=== PATIENT | female | born 1940 | race Caucasian/White ===

== ENCOUNTER 2016-07-21 17:35 | Inpatient (IN) | payer MEDICARE, MEDICAID ==
[~2016-07-21] VITALS: Ht 152.4 cm; Wt 60.2 kg
--- NOTE | ~2016-07-21 | CON ---
PATIENT'S NAME: KEITH KONG [facility] AGE: 75 Y [address] ROOM: [place] [address] LOCATION: [facility] [place] ADMIT DATE: 07/21/2016 Consultation DISCHARGE DATE: FAMILY PHYSICIAN: Lyric Blair MD ATTENDING PHYSICIAN: DAVID ROMERO DATE OF CONSULTATION: 07/22/2016 REASON FOR CONSULTATION: Dysphagia. HISTORY OF PRESENT ILLNESS: This is a very pleasant 75-year-old female who is well-known to our Gastroenterology Services. The patient does have a history of a diffuse esophageal spasms with recent PEG tube placement for nutritional support. The patient was admitted with complaints of intractable nausea, vomiting, as well as abdominal pain. We were asked to see in consultation as the patient needs esophageal clearance for possible MICHELLE. Cardiology was suspecting ruling out any type of infectious process going on regarding the patient's heart as MICHELLE were possibly ordered where they are requesting esophageal clearance. The patient was seen and examined. She does state that she has lost approximately 50 pounds over the past few months. The patient does appear to be visibly dry. She denies any fever or chills. The patient does have some abdominal pain. She states she has not been eating anything orally or denies any coughing with drinking of liquids. She does utilize her tube feedings for feedings as prescribed without any complications. PAST MEDICAL HISTORY: Diffuse esophageal spasm, dysmotility, rheumatoid arthritis on chronic steroids, hypertension, chronic recurring C. diff infection, and diverticulitis. PAST SURGICAL HISTORY: PEG tube placement and colostomy reversal. PAST SOCIAL HISTORY: The patient is . She does have a 36-fnyo-cvks history of smoking. She denies any alcohol or illicit drug use. FAMILY HISTORY: The patient's father secondary to a plane crash. The patient's mother of congestive heart failure. She has 2 brothers with heart disease. ALLERGIES: NSAIDS, GOLD SALTS, PENICILLIN, TETRACYCLINES, SULFA, ETHYL ALCOHOL, MORPHINE, ASPIRIN, INDOMETHACIN, ERYTHROMYCIN BASE, CHLOROQUINE, AZATHIOPRINE, PATIENT'S NAME: KEITH KONG [facility] AGE: 75 Y [address] ROOM: [place] [address] LOCATION: [facility] [place] ADMIT DATE: 07/21/2016 Consultation DISCHARGE DATE: FAMILY PHYSICIAN: Lyric Blair MD ATTENDING PHYSICIAN: DAVID ROMERO MINOCYCLINE, HYDROCHLOROQUINE, ENBREL, AND ORENCIA. CURRENT MEDICATIONS: Please refer to the medication administration record. REVIEW OF SYSTEMS: A 10-point review of systems was completed. All were negative except for those identified in the history of present illness. PHYSICAL EXAMINATION: GENERAL: A pleasant 75-year-old female who appears to be in no acute distress. VITAL SIGNS: Temperature 97.7, pulse of 99, respirations of 18, blood pressure 117/66, and oxygen saturations 94% on room air. SKIN: Moccasin, warm, and dry. No jaundice. HEENT: Head is normocephalic and atraumatic. Pupils are equal, round, and reactive to light. Sclerae are clear. Nonicteric. Oral mucosa is pink and moist. No thyromegaly. NECK: Soft and supple. CARDIOVASCULAR: Regular, normal S1, S2. RESPIRATORY: Respirations even and unlabored. LUNGS: Clear to auscultation. ABDOMEN: Soft, round, nontender, nondistended. PEG tube placement noted. Bowel sounds positive x4 quadrants. MUSCULOSKELETAL: No muscle weakness or atrophy. EXTREMITIES: No clubbing, cyanosis, or edema. NEUROLOGICAL: Grossly nonfocal. LABS AND DIAGNOSTICS: Laboratory obtained from 07/19/2016 showed a white blood cell count of 10.6, hemoglobin 11.9, hematocrit of 38.1, and platelet of 400. Glucose 123, BUN of 31, creatinine 1.2, sodium 139, potassium 4.3, chloride of 96, CO2 of 33, amylase 14, lipase is 72, CRP is 7.27, procalcitonin 0.73, ESR of 81. ASSESSMENT AND PLAN: Again, this is a very pleasant 75-year-old female with diffuse esophageal spasms, status post PEG tube placement. We were asked to see in consultation for possible esophageal clearance for possible MICHELLE per Cardiology. At this time, it is recommended for the patient to undergo an upper endoscopy for further evaluation in collaboration with Cardiology. This was discussed with Cardiology's nurse-practitioner as collaboration will be had regarding upper endoscopy as well as a MICHELLE. Thank you for this consult allowing us to participate in the care of this patient. PATIENT'S NAME: [facility] AGE: 75 Y [address] ROOM: [address] [address] LOCATION: [facility] [place]MIT DATE: 07/21/2016 Consultation DISCHARGE DATE: FAMILY PHYSICIAN: Lyric Blair MD ATTENDING PHYSICIAN: DAVID ROMERO RAFAELA RICHARDSON APRN FOR MD AMANDA FRENCH/avni /[id number] d: 07/22/162212 t: 08/23/16 0801, CONSULTATION REPORT
--- NOTE | ~2016-07-21 | CON ---
PATIENT'S NAME: KEITH KONG [facility] AGE: 75 Y [address] ROOM: [id number] [place], [place] [address] LOCATION: [facility] [place] ADMIT DATE: 07/21/2016 Consultation DISCHARGE DATE: FAMILY PHYSICIAN: Lyric Blair MD ATTENDING PHYSICIAN: DAVID ROMERO DATE OF CONSULTATION: 07/27/2016 Infectious Disease Consultation REASON FOR CONSULTATION: Recent treatment for MSSA bacteremia and diskitis, now with C. diff colitis and a positive blood culture for VRE. HISTORY: Ms. Guzman is a 75-year-old, female, who had previously been seen by Infectious Disease for the above-mentioned infection. She has a Staph aureus bacteremia and diskitis. She also has a history of recurrent C. diff colitis. She completed a long course of IV antibiotics along with oral vancomycin. On , she became ill, had significant abdominal pain, has felt unwell, as well as started having diarrhea. She had nausea and vomiting too. She went in to her primary care physician's office and they sent her to the hospital. She has ultimately been diagnosed as having C. diff colitis and has been started on fidaxomicin. As noted, she had been taking daily vancomycin while she was on the other antibiotic for her prior Staph infection. She also had a blood culture positive for VRE. She is feeling better. She is having less stools, less abdominal cramping and pain. She thinks she is going in the right direction. She did have a PICC line in place that appeared to be kinked. She was having a hard time getting this to flush. She says this was removed on Monday. Past medical, social, family history are unchanged from Dr. Ricketts's dictation on June 16, 2016. REVIEW OF SYSTEMS: All remaining review of systems are negative. Pertinent positives and negatives are in the HPI. PHYSICAL EXAMINATION: GENERAL: She is not in any acute distress. She is awake, alert, and oriented. VITAL SIGNS: She is afebrile with a T-max of 98.2, blood pressure is 103/57, pulse 87, and respirations 16. HEENT: NC/AT. EOMI. PERRLA. NECK: Supple. LUNGS: Clear. HEART: Regular without murmur. PATIENT'S NAME: KEITH KONG [facility] AGE: 75 Y [address] ROOM: [place] [address] LOCATION: [facility] [place] ADMIT DATE: 07/21/2016 Consultation DISCHARGE DATE: FAMILY PHYSICIAN: Lyric Blair MD ATTENDING PHYSICIAN: DAVID ROMERO ABDOMEN: Soft, mildly tender, not distended. No rebound or guarding. EXTREMITIES: Without cyanosis, clubbing, or edema. Skin: Without rash. LABORATORY DATA: White count is 8.6, hemoglobin 9.4, platelet count 351. Creatinine is 0.8. Blood cultures on 07/21, she had a single blood culture that grew a VRE organism. Two sets of blood cultures on 07/22 prior to institution of any IV antibiotics are negative x2. ASSESSMENT AND PLAN: 1. Clostridium difficile colitis. This has been a recurrent problem with her despite being on prophylaxis. The data on prophylaxis is a bit mixed. Some study showing some benefit, other study showing no benefit. In any case, it did not work for her. Agree with the fidaxomicin for 10 days. 2. Positive blood culture for vancomycin-resistant Enterococcus. I suspect this is clinically insignificant. She had been having diarrhea and I suspect she either contaminated her line or her skin. Repeat blood cultures prior to any effective antibiotics are negative thus far. The line that could have been contaminated has been removed. At this point in time, unless more cultures turn positive, which they are unlikely to do so, I would not pursue a MICHELLE and would not pursue treatment further at this point in time, as this may only exacerbate her C. diff. We will stop the fidaxomicin and discuss with others that I do not think a MICHELLE is warranted at this point in time. MD KEVIN SAMSON/avni /[id number] d: 07/27/16 1924 t: 07/28/16 0951, CONSULTATION REPORT
--- NOTE | ~2016-07-21 | HP ---
PATIENT'S NAME: KEITH KONG [facility] AGE: 75 Y [address] ROOM: [address] [place] [address] LOCATION: [facility] [place] ADMIT DATE: 07/21/2016 History & Physical DISCHARGE DATE: FAMILY PHYSICIAN: Lyric Blair MD ATTENDING PHYSICIAN: DAVID ROMERO DATE OF SERVICE: CHIEF COMPLAINT: Intractable nausea, vomiting, and abdominal pain. HISTORY OF PRESENT ILLNESS: This is a 75-year-old female with multiple frequent admissions and who was chronically ill, who presented with similar complaints of intractable nausea, vomiting, and abdominal pain lasting over the past several days. The patient was discharged from the hospital after management for similar complaints as well as Gram-positive Staphylococcus bacteremia, and was discharged on 07/05/2016 after a very long stay in the hospital with IV antibiotics to complete at home. The patient today comes from her primary care physician's office after presenting there for followup, and was noted to be complaining of yet again intractable nausea and vomiting. Of note, the patient has severe achalasia and has a PEG percutaneous endoscopic gastrostomy tube, and is supposed to be n.p.o. at all times. The patient tells me that she has not tried to consume anything by mouth at all, although the nurse complained and reports that the patient might have actually tried to sneak something by mouth during her lengthy hospitalizations here. The patient does tell me at this time that she did try to have something by mouth about a week ago, which got her to feel sick as well. The patient states that she had been using her tube feeds as prescribed as well. The patient currently complains of a severe abdominal pain that is generalized, non-radiating, is cramping in nature, and has visibly dry heaving, but not noted to have any emesis during my visit. She complains of subjective fevers and chills as well throughout this time. She denies any cough, shortness of breath, dizziness, lightheadedness, or chest pain. She denies any diarrhea or constipation or sick contacts as well. The patient lives at home with family, and states that she gets plenty of support from her family. She does have a Home Health nurse who comes to check with her. She tells me that she has just finished her last dose of IV antibiotics that she was supposed to get for bacteremia. PAST MEDICAL HISTORY: PATIENT'S NAME: KEITH KONG [facility] AGE: 75 Y [address] ROOM: [address] [address] LOCATION: [facility] [place] ADMIT DATE: 07/21/2016 History & Physical DISCHARGE DATE: FAMILY PHYSICIAN: Lyric Blair MD ATTENDING PHYSICIAN: DAVID ROMERO 1. Severe esophageal dysmotility. 2. Achalasia. 3. Rheumatoid arthritis, on chronic steroids therapy. 4. Hypertension. 5. Recurrent Clostridium difficile infection. 6. Diverticulitis. PAST SURGICAL HISTORY: 1. PEG percutaneous endoscopic gastrostomy tube placement. 2. Colostomy reversal. SOCIAL HISTORY: Marital Status: The patient is and lives at home with her siblings. Habits: She has a garuo-lfpb-dmdy smoking history. No alcohol use history. FAMILY HISTORY: Father of a plane crash. Mother of congestive heart failure. She has two brothers with a history of heart disease. MEDICATIONS: Per MAR. PHYSICAL EXAMINATION: VITAL SIGNS: Blood pressure was 139/65, pulse was 94, respiratory rate was 16, and saturating 98% on room air. GENERAL: The patient appears to be anxious and in distress from complaints of abdominal pain. HEENT: Head: Normocephalic and atraumatic. Dry mucous membranes. No scleral icterus or conjunctival pallor was noted. NECK: Supple. No jugular venous distention. SKIN: Without lesions or rash. CHEST: Clear to auscultation bilaterally. HEART: S1 and S2. Regular rate and rhythm. ABDOMEN: Soft. Diffuse tenderness to palpation. PEG percutaneous endoscopic gastrostomy tube is in place. EXTREMITIES: Without edema. NEUROLOGICAL: Nonfocal grossly. ASSESSMENT AND PLAN: 1. Intractable nausea and vomiting. She has a recurrent history of this. At this point, we will keep the patient n.p.o. as she should be and also hold off on the tube feeds and continue with the supportive care. The patient did have a KUB at her PCP primary care physician's office, which did not show clear signs of obstruction per report by Dr. Lynn. We will PATIENT'S NAME: KEITH KONG [facility] AGE: 75 Y [address] ROOM: [address] [address] LOCATION: [facility] [place] ADMIT DATE: 07/21/2016 History & Physical DISCHARGE DATE: FAMILY PHYSICIAN: Lyric Blair MD ATTENDING PHYSICIAN: DAVID ROMERO give IV fluids, manage pain, and monitor clinical improvement at this time. 2. Abdominal pain. This is related to nausea and vomiting it appears. We will continue to manage conservatively and manage as described above. 3. History of achalasia. The patient is n.p.o. and has a PEG percutaneous endoscopic gastrostomy tube in place for feeding purposes. 4. DVT deep venous thrombosis prophylaxis. We will use subq heparin. MD HATTIE FERNÁNDEZ/avni /[id number] D: [id number] T: [id number] HISTORY & PHYSICAL
--- NOTE | ~2016-07-21 | DS ---
PATIENT'S NAME: KEITH KONG [facility] AGE: 75 Y [address] ROOM: [id number] [place] [address] LOCATION: [facility] [place] ADMIT DATE: 07/21/2016 Discharge Summary DISCHARGE DATE: 07/30/2016 FAMILY PHYSICIAN: Lyric Blair MD ATTENDING PHYSICIAN: Nila Rangel PRINCIPAL DIAGNOSES: 1. Clostridium difficile colitis, recurrent. 2. Bacteremia. 3. Intractable nausea and vomiting. 4. Severe esophageal dysmotility, status post PEG percutaneous endoscopic gastrostomy tube placement. HOSPITAL COURSE: This is a 75-year-old female, known to have multiple frequent admissions at the hospital for repeated complaints of nausea, vomiting, generalized weakness, and abdominal pain. The patient presented with similar complaints on July 21, 2016 after she had just been sent out of the hospital with long-term antibiotics with a PICC line for management of the Gram-positive Staphylococcus bacteremia. During her hospital stay, the patient was also checked for Clostridium difficile due to complaints of diarrhea, and Clostridium difficile was noted to be positive. She was started treatment with Dificid during hospitalization, which has greatly improved her symptoms. The plan as far as the Clostridium difficile is concerned is to finish a ten-day course of Dificid, which should run through 08/02/2016, and I am giving her a prescription for this. Her insurance is able to cover for this. As far as her bacteremia, initial blood cultures were positive for VRE vancomycin-resistant Enterococcus bacteremia in the hospital. Infectious Disease Service was consulted subsequently, who evaluated the patient, and their recommendation was that this is probably a contaminant, and not clinically significant. The patient had been on daptomycin IV for three days prior to this evaluation, and that had been stopped when the patient had stayed afebrile and showed a clinical improvement in her overall status with the discontinuation of antibiotics. The patient, today, is back to her baseline. She is to avoid any solid p.o. intake, although she has a history of non-compliance. The patient states that she normally does well with minimal amounts of liquid diet, but she is supposed to use her PEG percutaneous endoscopic gastrostomy tube at all times for tube feeds as well as taking her medications. She verbalized understanding of the need for this. The patient today is in good spirits, and agreeable to being discharged home. DISCHARGE FOLLOWUP: She will follow up with her primary care physician early PATIENT'S NAME: KEITH KONG [facility] AGE: 75 Y [address] ROOM: [id number] [place], [place] [address] LOCATION: [facility] [place] ADMIT DATE: 07/21/2016 Discharge Summary DISCHARGE DATE: 07/30/2016 FAMILY PHYSICIAN: Lyric Blair MD ATTENDING PHYSICIAN: Nila Rangel next week. DISCHARGE MEDICATIONS: We will give her a prescription for Dificid to finish the course of antibiotics, and we will also give her p.r.n. Zofran to take. I have also increased her PPI proton pump inhibitor therapy to 40 mg to be taken in the morning, to help with her ongoing GI gastrointestinal symptoms. DISCHARGE PHYSICAL EXAMINATION: GENERAL: On examination today, the patient is awake, alert, and oriented x3, resting comfortably. CHEST: Clear to auscultation bilaterally. HEART: S1 and S2 were regular rate and rhythm. ABDOMEN: Soft, nontender, and nondistended. EXTREMITIES: Without edema. VITAL SIGNS: She had been afebrile throughout her stay here, and other vital signs are stable. DISCHARGE PLAN: The patient will follow up with her primary care physician, Dr. Blair, early next week. Greater than 30 minutes were spent in discharge planning. MD HATTIE FERNÁNDEZ/modl /[id number] d: 07/31/16 0505 t: 08/08/16 1143, DISCHARGE SUMMARY
[~2016-07-21 17:35] MED LIST changes: -BACITRACIN1 PKT TOP; -DIFICID200 MG PEG; -NEURONTIN300 MG PEG; -NUCYNTA50 MG PEG; -ZOFRAN4 MG SL; -ZOLOFT25 MG PEG
[2016-07-21] MEDS ORDERED: ATIVAN 0.5MG0.5 MG PEG (20:25)
[2016-07-24 05:17] LABS: BASOPHIL # 0.1 K/uL (0.0-0.2); BASOPHIL % 0.6 %; EOSINOPHIL # 0.2 K/uL (0.0-0.5); EOSINOPHIL % 2.3 %; HEMATOCRIT 31.5 % (33.0-46.0); HEMOGLOBIN 9.6 g/dL (10.0-15.0); IMMATURE GRANULOCYTE # 0.1 K/uL (0.0-0.3); IMMATURE GRANULOCYTE % 0.7 %; LYMPHOCYTE # 1.3 K/uL (0.8-4.0); LYMPHOCYTE % 15.6 %; MCH 25.4 pg (27.0-34.0); MCHC 30.5 gm/dL (32.0-36.5); MCV 83.3 fl (83.0-98.0); MONOCYTE # 0.8 K/uL (0.0-1.0); MONOCYTE % 9.6 %; NEUTROPHIL # (ANC) 6.1 K/uL (1.8-7.8); NEUTROPHIL % 71.2 %; NRBC % 0 /100WBC (0-0.00); PLATELET COUNT 333 K/uL (150-450); RBC 3.78 M/uL (3.50-5.50); RDW-CV 18.7 % (11.9-14.6); WBC 8.6 K/uL (4.0-11.0)
[2016-07-24 05:35] LABS: ALBUMIN 2.1 gm/dL (3.5-5.0); ALK PHOS 162 IU/L (33-138); AST 18 IU/L (10-40); BLOOD UREA NITROGEN 16 mg/dL (6-24); CHLORIDE 107 mMol/L (96-110); CO2 26 mMol/L (22-32); CREATININE 0.8 mg/dL (0.5-1.1); SODIUM 143 mMol/L (135-145); TOTAL BILIRUBIN 0.2 mg/dL (0.0-1.5); TOTAL PROTEIN 5.9 g/dL (6.0-8.4)
[2016-07-24 05:36] LABS: ALT < 10 IU/L (12-78); ANION GAP 12.9 (10.0-19.0); ESTIMATED GFR (MDRD EQUATION) > 60; POTASSIUM 2.9 mMol/L (3.7-5.1)
[2016-07-25 05:10] LABS: BASOPHIL % 0.5 %; EOSINOPHIL # 0.2 K/uL (0.0-0.5); EOSINOPHIL % 2.8 %; HEMATOCRIT 30.9 % (33.0-46.0); HEMOGLOBIN 9.4 g/dL (10.0-15.0); IMMATURE GRANULOCYTE % 0.4 %; LYMPHOCYTE # 1.8 K/uL (0.8-4.0); LYMPHOCYTE % 22.2 %; MCH 25.8 pg (27.0-34.0); MCHC 30.4 gm/dL (32.0-36.5); MCV 84.7 fl (83.0-98.0); MONOCYTE # 0.9 K/uL (0.0-1.0); MONOCYTE % 11.5 %; MPV 9.8 fl (9.4-12.4); NEUTROPHIL % 62.6 %; NRBC % 0 /100WBC (0-0.00); PLATELET COUNT 323 K/uL (150-450); RBC 3.65 M/uL (3.50-5.50); RDW-CV 18.9 % (11.9-14.6); WBC 7.9 K/uL (4.0-11.0)
[2016-07-25 05:27] LABS: ALK PHOS 184 IU/L (33-138); AST 13 IU/L (10-40); BLOOD UREA NITROGEN 15 mg/dL (6-24); CHLORIDE 112 mMol/L (96-110); CO2 26 mMol/L (22-32); CREATININE 0.8 mg/dL (0.5-1.1); ESTIMATED GFR (MDRD EQUATION) > 60; MAGNESIUM 1.8 mg/dL (1.3-2.6); TOTAL BILIRUBIN 0.2 mg/dL (0.0-1.5); TOTAL PROTEIN 5.5 g/dL (6.0-8.4)
[2016-07-25 05:30] LABS: ALBUMIN 1.9 gm/dL (3.5-5.0); ALT < 10 IU/L (12-78); ANION GAP 12.9 (10.0-19.0); POTASSIUM 3.9 mMol/L (3.7-5.1); SODIUM 147 mMol/L (135-145)
[2016-07-26 05:31] LABS: BASOPHIL # 0.1 K/uL (0.0-0.2); BASOPHIL % 0.6 %; EOSINOPHIL # 0.2 K/uL (0.0-0.5); EOSINOPHIL % 2.6 %; HEMATOCRIT 30.6 % (33.0-46.0); HEMOGLOBIN 9.4 g/dL (10.0-15.0); IMMATURE GRANULOCYTE # 0.1 K/uL (0.0-0.3); IMMATURE GRANULOCYTE % 0.6 %; LYMPHOCYTE # 2.6 K/uL (0.8-4.0); LYMPHOCYTE % 30.1 %; MCH 25.9 pg (27.0-34.0); MCHC 30.7 gm/dL (32.0-36.5); MCV 84.3 fl (83.0-98.0); MONOCYTE % 11.3 %; MPV 9.8 fl (9.4-12.4); NEUTROPHIL # (ANC) 4.7 K/uL (1.8-7.8); NEUTROPHIL % 54.8 %; NRBC % 0 /100WBC (0-0.00); PLATELET COUNT 351 K/uL (150-450); RBC 3.63 M/uL (3.50-5.50); RDW-CV 18.7 % (11.9-14.6); WBC 8.6 K/uL (4.0-11.0)
[2016-07-26 05:46] LABS: BLOOD UREA NITROGEN 15 mg/dL (6-24); CALCIUM 8.2 mg/dL (8.5-10.5); CHLORIDE 104 mMol/L (96-110); CO2 28 mMol/L (22-32); CREATININE 0.7 mg/dL (0.5-1.1); ESTIMATED GFR (MDRD EQUATION) > 60; SODIUM 141 mMol/L (135-145)
[2016-07-27 05:33] LABS: ALBUMIN 2.4 gm/dL (3.5-5.0); ALK PHOS 165 IU/L (33-138); ANION GAP 12.6 (10.0-19.0); AST 15 IU/L (10-40); BLOOD UREA NITROGEN 13 mg/dL (6-24); CALCIUM 9.1 mg/dL (8.5-10.5); CHLORIDE 101 mMol/L (96-110); CO2 29 mMol/L (22-32); CPK 12 IU/L (21-215); CREATININE 0.8 mg/dL (0.5-1.1); ESTIMATED GFR (MDRD EQUATION) > 60; POTASSIUM 3.6 mMol/L (3.7-5.1); SODIUM 139 mMol/L (135-145); TOTAL PROTEIN 6.5 g/dL (6.0-8.4)
[2016-07-27 05:38] LABS: ALT < 10 IU/L (12-78); TOTAL BILIRUBIN 0.3 mg/dL (0.0-1.5)
[2016-07-28 05:43] LABS: BASOPHIL # 0.1 K/uL (0.0-0.2); BASOPHIL % 0.9 %; EOSINOPHIL # 0.3 K/uL (0.0-0.5); EOSINOPHIL % 2.6 %; HEMATOCRIT 36.5 % (33.0-46.0); HEMOGLOBIN 11.2 g/dL (10.0-15.0); IMMATURE GRANULOCYTE # 0.1 K/uL (0.0-0.3); IMMATURE GRANULOCYTE % 0.8 %; LYMPHOCYTE # 3.4 K/uL (0.8-4.0); LYMPHOCYTE % 31.5 %; MCH 25.4 pg (27.0-34.0); MCHC 30.7 gm/dL (32.0-36.5); MCV 82.8 fl (83.0-98.0); MONOCYTE # 1.5 K/uL (0.0-1.0); MONOCYTE % 13.9 %; MPV 9.8 fl (9.4-12.4); NEUTROPHIL # (ANC) 5.4 K/uL (1.8-7.8); NEUTROPHIL % 50.3 %; NRBC % 0 /100WBC (0-0.00); PLATELET COUNT 465 K/uL (150-450); RBC 4.41 M/uL (3.50-5.50); RDW-CV 19.2 % (11.9-14.6); WBC 10.8 K/uL (4.0-11.0)
[2016-07-28 06:00] LABS: CALCIUM 9.2 mg/dL (8.5-10.5)
[2016-07-30 05:33] LABS: BASOPHIL # 0.1 K/uL (0.0-0.2); BASOPHIL % 0.9 %; EOSINOPHIL # 0.3 K/uL (0.0-0.5); EOSINOPHIL % 2.3 %; HEMATOCRIT 34.3 % (33.0-46.0); HEMOGLOBIN 10.7 g/dL (10.0-15.0); IMMATURE GRANULOCYTE # 0.1 K/uL (0.0-0.3); IMMATURE GRANULOCYTE % 0.6 %; LYMPHOCYTE % 34.3 %; MCH 25.6 pg (27.0-34.0); MCHC 31.2 gm/dL (32.0-36.5); MCV 82.1 fl (83.0-98.0); MONOCYTE # 1.7 K/uL (0.0-1.0); MONOCYTE % 14.5 %; MPV 9.7 fl (9.4-12.4); NEUTROPHIL # (ANC) 5.5 K/uL (1.8-7.8); NEUTROPHIL % 47.4 %; NRBC % 0.3 /100WBC (0-0.00); PLATELET COUNT 512 K/uL (150-450); RBC 4.18 M/uL (3.50-5.50); RDW-CV 19.3 % (11.9-14.6); WBC 11.7 K/uL (4.0-11.0)
[2016-07-30 05:49] LABS: ANION GAP 14.6 (10.0-19.0); CALCIUM 8.9 mg/dL (8.5-10.5); POTASSIUM 3.6 mMol/L (3.7-5.1)
[2016-07-30] MEDS ORDERED: DIFICID200 MG PEG (17:54)
[2016-07-30] MEDS ORDERED: ZOFRAN4 MG SL (18:02)
[2017-02-08] MEDS ORDERED: NEURONTIN300 MG PEG (12:54)
[2017-02-08] MEDS ORDERED: NUCYNTA50 MG PEG (12:55)
[2017-02-08] MEDS ORDERED: ZOLOFT25 MG PEG (12:57)
[2017-02-08] MEDS ORDERED: BACITRACIN1 PKT TOP (13:03)
== END 2016-07-30 19:20 | disposition home health service (06) | DRG 372 ==
LOC: GMSU 17:35
PROVIDERS: Family Medicine; Nurse Practitioner Family; ADMIT Internal Medicine
DX: A04.7 Enterocolitis due to Clostridium difficile (principal); E44.0 Moderate protein-calorie malnutrition; E87.0 Hyperosmolality and hypernatremia; R78.81 Bacteremia; M06.9 Rheumatoid arthritis, unspecified; R11.2 Nausea with vomiting, unspecified; Z93.1 Gastrostomy status; I10 Essential (primary) hypertension; Z79.52 Long term (current) use of systemic steroids; Z87.891 Personal history of nicotine dependence; K22.4 Dyskinesia of esophagus; E87.6 Hypokalemia; G89.29 Other chronic pain
CPT/HCPCS: J0690; J0878; J1170; J1644; J2060; J2405; J2997; J3370; J3480; J7030; J7040; J7050; J7060; J7512

== ENCOUNTER → 2016-07-21 | Outpatient (CLI) | payer MEDICARE, MEDICAID ==
[~2016-07-21] MED LIST: ACIDOPHILUS1 EAC3 PEG; ALBUTEROL2.5 MG/0.5 INH; APAP/CODEINE EL15 ML PEG; ATIVAN 0.5MG0.5 MG PEG; AZULFIDINE500 MG PEG; BACITRACIN1 PKT TOP; CALCIUM CARB PEG; CARAFATE SU100 MG/ML PEG; CARAFATE SU100 MG/ML PO; CARAFATE1 GM/10 ML PO; CARDIZEM30 MG PO; CARDIZEM60 MG PEG; CEFAZOLIN2 GM/50 ML IV; CHOLESTYRAMINE P4 GM PEG; DELTASONE5 MG PEG; DELTASONE5 MG PO; DIFICID200 MG PEG; DITROPAN DP5 MG/5 ML PEG; DRISDOL 5050000 UNIT PO; DULCOLAX10 MG R; FERGON325 M1 PEG; FERGON325 M1 PO; FLORASTOR250 MG PO; HYDROCODON-ACE1 EAC4 PO; JEVITY 1.5 CA1500 ML PEG; LACTINEX (FLORA1 TAB PO; LASIX20 MG PEG; LASIX40 M1 PEG; LASIX40 MG PO; LIDODERM 5% P1 PATCH TOP; LIDOPATCH1 EACH TOP; LORTAB ELIXI15 ML/UD PEG; LOTRIMIN30 GM TOP; MAG-OX-400(241400 MG PEG; MAGOX 400400 MG PO; MILK OF MA400 MG/5 M PEG; MYCOSTATIN CR15 GM TOP; MYLICON OR GAS-80 MG PEG; NEURONTIN100 MG PO; NEURONTIN300 MG PEG; NEURONTIN300 MG PO; NEUTRA-PHOS (PHO1 EA PO; NORCO 5-325 MG1 TAB PO; NUCYNTA50 MG PEG; NUCYNTA50 MG PO; OSCAL + D500 MG PO; PRILOSEC10 MG FT; PROTONIX40 MG PO; PROVENTIL OR V6.7 GM INH; REGLAN ORAL5 MG/5 ML PEG; REMERON15 MG PEG; REMERON15 MG PO; SUCRALFATE1 GM PO; THERA-VITE W/ B1 TAB PO; THERAGRAN-M1 TAB PEG; TUBERSOL ID; TUMS REGULAR ST1 TAB PEG; TUMS REGULAR ST1 TAB PO; TYLENOL LI160 MG/5 M PEG; TYLENOL/COD#31 TAB PO; TYLENOL325 MG PO; VANCOCIN HCL125 MG PO; VANCOMYCIN 50 MG/ML PO; VANCOMYCIN HCL1 GM PEG; VANCOMYCIN IV; VITAMIN D-40400 UNIT PEG; VITAMIN D35000 UNI1 PEG; Vancomycin HCl PO; ZESTORETIC 20/21 TAB PO; ZOFRAN ODT 4 MG4 MG PO; ZOFRAN4 MG PO; ZOFRAN4 MG SL; ZOLOFT25 MG PEG; ZOLOFT50 MG PEG
== END | disposition disaster alternative care site (69) ==
LOC: LFPA 15:44
DX: Z53.9 Procedure and treatment not carried out, unspecified reason (principal)

== ENCOUNTER 2017-02-09 16:52 | Emergency (ER) | payer MEDICARE, MEDICAID ==
--- NOTE | ~2017-02-09 | ER ---
PATIENT'S NAME: KEITH KONG [facility] AGE: 76 Y [address] ROOM: [place] [address] LOCATION: [facility] ADMIT DATE: 02/09/2017 ER/Outpatient Report DISCHARGE DATE: 02/09/2017 FAMILY PHYSICIAN: Lyric Blair MD ATTENDING PHYSICIAN: Chad Alexander CHIEF COMPLAINT: Feeding tube issues. HISTORY OF PRESENT ILLNESS: Ms Guzman is received a new feeding tube by the GI team earlier today. She states she is having issues with discharge and inability to use it and thinks it is not working. She was directed to come here by the GI team. She denies any pain other than when she tries to fill her stomach with her tube. She denies any other symptoms at this time. She denies fevers or chills. PAST MEDICAL HISTORY: Documented on the record and reviewed by me. SOCIAL HISTORY: Documented on the record and reviewed by me. MEDICATIONS: Documented on the record and reviewed by me. ALLERGIES: DOCUMENTED ON THE RECORD AND REVIEWED BY ME. REVIEW OF SYSTEMS: Was completed and negative for pertinent symptoms other than as noted in the HPI. PHYSICAL EXAMINATION: VITAL SIGNS: Blood pressure is 162/74, pulse 96, respiratory rate 16, temperature 98.6, SpO2 is 91%. GENERAL: Age-appropriate female. Awake, alert, appropriate on the exam table. No apparent distress. HEENT: Unremarkable. CHEST: Even and unlabored respirations. HEART: Appears regular. SKIN: Clean, dry, and intact. EXTREMITIES: Appear unremarkable. ABDOMEN: Notable for a G-tube in the left upper quadrant. Close to the midline. No clear erythema, no bleeding. PATIENT'S NAME: KEITH KONG [facility] AGE: 76 Y [address] ROOM: [place] [address] LOCATION: [facility] ADMIT DATE: 02/09/2017 ER/Outpatient Report DISCHARGE DATE: 02/09/2017 FAMILY PHYSICIAN: Lyric Blair MD ATTENDING PHYSICIAN: Chad Alexander LABORATORY DATA AND X-RAYS: None. IMPRESSION: G-tube issue. EMERGENCY DEPARTMENT COURSE: The patient was seen and evaluated at bedside. It became apparent that the patient was having difficulty inserting the syringe into the actual receiving device on the end of the G-tube. Nurse was able to flush at bedside with water with no difficulty. There have been some issues with reflux in the tube as well. Dr. Petersen, gastroenterology, came and evaluated the patient, made some suggestions. We will discharge the patient to home to follow up with Dr. Petersen as needed. All questions were answered, and the patient was discharged. MD MARIO CARBALLO/avni /[id number] d: 02/10/17 1516 t: 02/13/17 0750, OUTPATIENT REPORT
== END 2017-02-09 17:50 | disposition disaster alternative care site (69) ==
LOC: GMED 16:52
DX: K94.23 Gastrostomy malfunction (principal); F17.210 Nicotine dependence, cigarettes, uncomplicated; Z90.49 Acquired absence of other specified parts of digestive tract; Z88.0 Allergy status to penicillin; Z88.2 Allergy status to sulfonamides; Z88.6 Allergy status to analgesic agent; Z88.8 Allergy status to other drugs, medicaments and biological substances; Z98.890 Other specified postprocedural states

== ENCOUNTER → 2017-02-09 | Day surgery (SDC) | payer MEDICARE, MEDICAID ==
[~2017-02-09] VITALS: Ht 152.4 cm; Wt 72.5 kg
[~2017-02-09] MED LIST changes: +BACITRACIN1 PKT TOP; +DIFICID200 MG PEG; +NEURONTIN300 MG PEG; +NUCYNTA50 MG PEG; +ZOFRAN4 MG SL; +ZOLOFT25 MG PEG
--- NOTE | ~2017-02-09 | OR ---
PATIENT'S NAME: KEITH KONG [facility] AGE: 76 Y [address] ROOM: [place] [address] LOCATION: [facility] ADMIT DATE: 02/09/2017 OR/Procedure Report DISCHARGE DATE: FAMILY PHYSICIAN: Lyric Blair MD ATTENDING PHYSICIAN: RAFAELA RICHARDSON SURGEON: Joseph Gramajo MD DENTAL HYGIENE TEACHER: DATE OF PROCEDURE: 02/09/2017 INDICATIONS: Malfunctioning PEG. PROCEDURE PERFORMED: Percutaneous endoscopic gastrostomy replacement. The 20- Cymraes percutaneous endoscopic gastrostomy was replaced with 22-Cymraes percutaneous endoscopic gastrostomy. TECHNIQUE: After informed consent was obtained from the patient, the previous PEG was removed with gentle pressure. This was the original PEG with a bumper. Prior to removal, the free movement of the tube was ensured. This was followed by removal of the PEG. Once the PEG was removed, it was replaced with the 22-Cymraes replacement PEG. The balloon was insufflated to the desired volume. The PEG was in place. The positioning was confirmed with air insufflation. The patient tolerated the procedure well. The wound site looked okay. There was no evidence of infection prior to replacement. RECOMMENDATIONS: The patient's PEG may be used today. JOSEPH GRAMAJO MD AAN/modl /[id number] d: 02/09/17 1359 t: 02/11/17 1619, OPERATIVE SUMMARY
== END ==
LOC: GPOC 02-08 14:00 → GEND 08:48 → GPOC 14:00
PROC: 0D20XUZ Change Feeding Device in Upper Intestinal Tract, External Approach (ICD-10-PCS; principal; 2017-02-09)
DX: K94.23 Gastrostomy malfunction (principal); I10 Essential (primary) hypertension; F41.9 Anxiety disorder, unspecified; Z90.49 Acquired absence of other specified parts of digestive tract; Z98.890 Other specified postprocedural states; H52.209 Unspecified astigmatism, unspecified eye; Z88.0 Allergy status to penicillin; Z88.8 Allergy status to other drugs, medicaments and biological substances; Z88.2 Allergy status to sulfonamides; Z88.6 Allergy status to analgesic agent; Z88.1 Allergy status to other antibiotic agents; Z79.899 Other long term (current) drug therapy; Z79.52 Long term (current) use of systemic steroids
CPT/HCPCS: B4087; G0463